=== PATIENT | female | born 1990 | race Caucasian/White ===

== ENCOUNTER 2020-07-17 23:21 | Emergency (ER) | payer MEDICAID, SELFPAY ==
[2020-07-17 23:22] VITALS: BP 122/69; PULSE 88; RESP 18; TEMP 36.6; O2SAT 98; BMI 37.7
--- NOTE | 2020-07-17 23:47 | CT_ITS ---
STUDY: CT ABDOMEN AND PELVIS WITH CONTRAST REASON FOR EXAM: Female, 30 years old. Post op infection RADIATION DOSAGE (If Supplied By Facility): CTDIvol = ( 15.015 ) mGy, DLP = ( 1356.88 ) mGycm TECHNIQUE: Transaxial images were obtained from the dome of the diaphragm to the symphysis pubis without oral contrast. IV 100mL Isovue-370 was administered. Sagittal and coronal images were reconstructed. Individualized dose optimization techniques were used for this CT. COMPARISON: None. FINDINGS: Lung bases clear. Bilateral breast implants partially included. Unremarkable liver, spleen, adrenals, pancreas, and bilateral kidneys. Prior appendectomy. Bowel loops nonobstructed. No definite cholelithiasis. No free air or free fluid in the abdomen and pelvis. No adenopathy. Intact abdominal aorta and its major branches. No adnexal mass. Grossly unremarkable urinary bladder. Suggestion of recent liposuction. An approximately 14 x 3 x 4 cm rim-enhancing fluid collection in the subcutaneous tissues of the right posterolateral abdominal wall, suspicious for an abscess. Intact osseous structures. CT/Abdomen/Pelvis W IV Cont ONLY IMPRESSION: Suggestion of recent liposuction. A rim-enhancing fluid collection in the subcutaneous tissues in the right posterolateral abdominal wall, suspicious for an abscess. Prior appendectomy. Electronically Signed: Milan Lizarraga MD at 2:02 EDT Tel , Service support ,
--- NOTE | 2020-07-17 23:49 | ED.VIS.GEN ---
History of Present Illness Chief Complaint: Wound Check Informant: Patient Onset: Days Context: Gradual Onset Narrative: Patient presents with redness and draining from her surgical site. She had a tummy tuck performed on June 18 at [facility] of plastic surgery. Patient states this past Monday, July 13 she noted some redness. She has been having fevers since that time. She called the office and was started on doxycycline on the . She has not been seen by the physician. Patient presents today stating that the redness is starting to spread down her leg and she was concerned. - Past Medical History (1) Anxiety and depression Status: Chronic Past Medical History - Allergies and Home Meds Allergies/Adverse Reactions: Allergies No Known Allergies Allergy (Verified 07/17/20 23:24) Primary Care Physician: Gilberto Renee MD [Primary Care Provider] - Lives: With Family Smoking Status: Never smoker Review of Systems General: Reports: Chills, Fever Eyes: Denies: Visual changes - bilaterally ENT: Denies: Bilateral ear pain Cardiovascular: Denies: Chest pain Respiratory: Denies: Dyspnea, Cough Gastrointestinal: Denies: Abdominal pain, Vomiting, Diarrhea Genitourinary: Denies: Dysuria Musculoskeletal: Denies: Extremity Pain Skin: Reports: Rash, Wounds Neurological: Denies: Headache Hematologic: Denies: Easy bruising, Easy bleeding Allergy: Denies: Uticaria Physical Exam Vital Signs/Narrative: Vital Signs Temp Pulse Resp BP Pulse Ox 07/17/20 23:22 97.9 F 88 18 122/69 H 98 Inital Vital Signs reviewed: Yes General: Well nourished, Well developed Head: Normocephalic ENT: Moist mucous membranes Neck: Supple Cardiovascular: Regular rate, Regular rhythm Respiratory: No distress, CTA bilaterally Abdomen: Soft, - - Healing surgical incision around the right anterior pelvis and lower abdomen. Large area of cellulitis around the lateral right hip measuring approximately 18 x 21 cm. There is some erythematous streaking down into the right groin. There is 1 area on the posterior right hip that is draining. Skin: - - As above Neurological: Alert, Oriented x3 Psychological: Normal affect Diagnostic/Tx/Re-eval Impressions Abdomen/Pelvis CT 07/17/20 23:47 IMPRESSION: Suggestion of recent liposuction. A rim-enhancing fluid collection in the subcutaneous tissues in the right posterolateral abdominal wall, suspicious for an abscess. Prior appendectomy. Electronically Signed: Milan Lizarraga MD at 2:02 EDT Tel , Service support , 07/17/20 23:47 Abdomen/Pelvis W IV Cont ONLY [CT] Stat Laboratory Results 07/18/20 07/18/20 07/18/20 00:05 00:05 00:05 WBC 14.4 H RBC 3.51 L Hgb 10.1 L Hct 32.4 L MCV 92.3 MCH 28.8 MCHC 31.2 L RDW Std Deviation 44.1 H RDW Coeff of Hal 13.2 Plt Count 364 MPV 9.0 Immature Gran % (Auto) 0.900 Neut % (Auto) 69.4 Lymph % (Auto) 23.3 Yell % (Auto) 4.0 Eos % (Auto) 2.2 Baso % (Auto) 0.2 Absolute Neuts (auto) 10.0 H Absolute Lymphs (auto) 3.36 Nucleated RBC % 0 Sodium 140 Potassium 3.5 Chloride 104 Carbon Dioxide 30.0 Anion Gap 6 BUN 14 Creatinine 0.61 Estim Creat Clear Calc 110.54 Est GFR (MDRD) Af Amer 146 Est GFR (MDRD) Non-Af 121 BUN/Creatinine Ratio 22.9 H Glucose 104 Lactic Acid 0.7 Calcium 8.7 Serum , Qual 07/18/20 00:05 WBC RBC Hgb Hct MCV MCH MCHC RDW Std Deviation RDW Coeff of Hal Plt Count MPV Immature Gran % (Auto) Neut % (Auto) Lymph % (Auto) Yell % (Auto) Eos % (Auto) Baso % (Auto) Absolute Neuts (auto) Absolute Lymphs (auto) Nucleated RBC % Sodium Potassium Chloride Carbon Dioxide Anion Gap BUN Creatinine Estim Creat Clear Calc Est GFR (MDRD) Af Amer Est GFR (MDRD) Non-Af BUN/Creatinine Ratio Glucose Lactic Acid Calcium Serum , Qual NEGATIVE - Medical Decision Making Blood work and blood cultures were initiated. Blood work is returned with a white count of 14.[address] scan with IV contrast reveals a fluid collection measuring 14 x 3 x 4 cm suspicious for an abscess in the right posterior lateral abdominal wall. Patient was given Zosyn and vancomycin in the emergency room. Plastic surgeon from [facility] for plastic surgery where the patient's procedure was done did return my call. He asked the patient be placed on Augmentin and clindamycin and they will see her in the clinic first thing Monday. This was discussed with patient and she is comfortable with this plan. ED Disposition - Plan for ED Patient: Disposition: Home or Assisted Living Diagnosis: Postoperative wound infection Instructions: ED Wound Infection after surgery Prescriptions: Amox/Clavulanate Tablet [Augmentin Tablet] 875 mg PO Q12H #20 tab Transmission Status: Pending to [id number] Clindamycin [Cleocin] 300 mg PO 4X/DAY #80 capsule Transmission Status: Pending to [id number] Additional Instructions: Follow-up with your surgeon Monday as discussed.
[2020-07-18 00:25] LABS: Absolute Lymphocyte Count 3.36 X10^3/uL (0.83-4.51); Basophil# 0.03 X10^3/uL; Basophil% 0.2 % (0-1); Eosinophil# 0.32 X10^3/uL; Eosinophils% 2.2 % (0-5); Hematocrit 32.4 % (37-47); Hemoglobin 10.1 g/dL (12.0-15.0); Lymphocyte # 3.36 X10^3/ul (0.83-4.51); Lymphocyte % 23.3 % (19-41); Mean Corp Hgb Conc 31.2 g/dL (32-36); Mean Corpuscular Hgb 28.8 pg (27.0-32.0); Mean Corpuscular Volume 92.3 fL (81-99); Monocyte# 0.58 X10^3/uL; NRBC Flagged by Analyzer 0 % (0-5); Neutrophil # 9.97 X10^3/uL (2.7-7.7); Neutrophil % 69.4 % (47-70); Platelet Count 364 K/mm3 (150-450); RBC Distribution Width CV 13.2 % (11.6-14.6); RBC Distribution Width SD 44.1 fl (35.1-43.9); Red Blood Count 3.51 M/mm3 (4.2-5.4); White Blood Count 14.4 K/mm3 (4.4-11.0)
[2020-07-18] MEDS: 0.9% Normal Saline 1,000 ML 150 ML IV (00:28)
[2020-07-18 00:30] VITALS: BP 113/63; PULSE 85; RESP 15; O2SAT 98
[2020-07-18 00:37] LABS: Internal QC Validated? YES +Cl - CLEAR BKGD; Pregnancy, Serum, hCG Quali. NEGATIVE Negative
[2020-07-18 00:39] LABS: Anion Gap 6 (5-15); BUN 14 mg/dL (7-18); BUN/Creat Ratio 22.9 RATIO (10-20); Calcium,Total 8.7 mg/dL (8.5-10.1); Chloride 104 mmol/L (98-107); Creatinine, Serum 0.61 mg/dL (0.55-1.02); EST Glomerular Filtration Rate 121 mL/min (>60); Est Glom Filt Rate - Afr Amer 146 mL/min (>60); Estimated Creatinine Clearance 110.54 ml/min; Glucose 104 mg/dL (74-106); Potassium 3.5 mmol/L (3.5-5.1); Sodium Level 140 mmol/L (136-145)
[2020-07-18 00:43] LABS: Lactic Acid 0.7 mmol/L (0.4-1.9)
[2020-07-18 01:26] VITALS: BP 116/63; PULSE 85; RESP 15; O2SAT 98
[2020-07-18 02:03] VITALS: BP 110/62; PULSE 91; RESP 16; O2SAT 96
[2020-07-18 03:30] VITALS: BP 111/63; PULSE 84; RESP 17; O2SAT 98
== END 2020-07-18 03:35 | disposition home or self-care (01) ==
PROVIDERS: Emergency Provider Emergency Medicine
DX: T81.41XA Infection following a procedure, superficial incisional surgical site, initial encounter (principal); F32.9 Major depressive disorder, single episode, unspecified; F41.9 Anxiety disorder, unspecified; Z79.899 Other long term (current) drug therapy
CPT/HCPCS: 74177; 80048; 83605; 84703; 85025; 87040; 96365; 96367; 99284; J7040; Q9967; A4216